=== PATIENT | male | born 1965 | race Caucasian/White ===

== ENCOUNTER 2016-06-26 20:41 | Emergency (ER) | payer SELFPAY ==
[~2016-06-26] VITALS: Ht 185.4 cm; Wt 72.6 kg
[2016-06-26 21:06] VITALS: BP 160/65
[2016-06-26] MEDS ORDERED: CEPHALEXIN MONOHYDRATE 500 MG CAPSULE PO ONE ×2 (21:28→21:30)
[2016-06-26] MEDS ORDERED: SULFAMETH/TRIMETH 800/160 MG 1 UDTAB TABLET PO ONE ×2 (21:28→21:30)
== END 2016-06-26 21:33 | disposition home or self-care (01) ==
LOC: ER 20:43
DX: L03.113 Cellulitis of right upper limb (principal); A49.02 Methicillin resistant Staphylococcus aureus infection, unspecified site; Z59.0 Homelessness
CPT/HCPCS: A4606; Z7610

== ENCOUNTER 2016-09-04 09:25 | Emergency (ER) | payer OTHER ==
[~2016-09-04] VITALS: Ht 177.8 cm; Wt 70.3 kg
[2016-09-04 09:52] LABS: EOSINOPHILS % (AUTO) 0.8 % (0.0-6.0); HEMATOCRIT 42 % (39-51); HEMOGLOBIN 14.3 g/dL (13.5-17.5); LYMPHOCYTES # (AUTO) 1.6 /CMM (0.8-4.8); LYMPHOCYTES % (AUTO) 44.2 % (20.0-44.0); MEAN CORPUSCULAR HEMOGLOBIN 32 PG (26.0-33.0); MEAN CORPUSCULAR HGB CONC 34 g/dl (31.0-36.0); MEAN CORPUSCULAR VOLUME 95 fL (80-96); MONOCYTES # (AUTO) 0.4 /CMM (0.1-1.30); MONOCYTES % (AUTO) 10.3 % (2.0-12.0); NEUTROPHILS # (AUTO) 1.5 /CMM (1.8-8.9); NEUTROPHILS % (AUTO) 43.7 % (43.0-81.0); PLATELET COUNT (AUTO) 151 /CMM (150-450); RDW COEFFICIENT OF VARIATION 14.3 (11.5-15.0); RED BLOOD CELL COUNT(AUTO) 4.43 MIL/uL (4.5-6.0); WHITE BLOOD COUNT (AUTO) 3.5 K/uL (4.3-11.0)
--- NOTE | 2016-09-04 09:52 | NUR ---
PT BBRA FROM STREETS: MULTIPLE COMPLAINTS: HEADACHE, FLU LIKE SYMPTOMS, BACK PAIN. PLACED ON MONITOR. AWAITING MD ORDER
--- NOTE | 2016-09-04 10:00 | NUR ---
DR SCALES AT BEDSIDE FOR EVAL
[2016-09-04 10:08] LABS: INR 0.97 (0.87-1.13); PROTHROMBIN TIME 10.4 SECS (9.5-12.7)
[2016-09-04 10:09] LABS: CALCIUM, SERUM 8.6 mg/dL (8.5-10.1); CARBON DIOXIDE 30 mmol/L (21-32); CHLORIDE 100 mmol/L (98-107); CREATININE 0.6 mg/dL (0.6-1.3); GFR 141 mL/min (>60); GLUCOSE 115 mg/dL (74-106); POTASSIUM 3.6 mmol/L (3.5-5.1); SODIUM SERUM 139 mmol/L (136-145); UREA NITROGEN, BLOOD 5 mg/dL (7-18)
--- NOTE | 2016-09-04 10:10 | NUR ---
XRAY AT BEDSIDE
[2016-09-04 10:17] LABS: ALANINE AMINOTRANSFERASE 73 U/L (12-78); ALKALINE PHOSPHATASE 58 U/L (46-116); ASPARTATE AMINOTRANSFERASE 87 U/L (15-37); BILIRUBIN,DIRECT 0.1 mg/dL (0.0-0.2); BILIRUBIN,TOTAL 0.4 mg/dL (0.2-1.0); TOTAL PROTEIN, SERUM 8.2 g/dL (6.4-8.2); TROPONIN I < 0.017 ng/mL (0.00-0.056)
[2016-09-04 10:30] VITALS: BP 125/66
--- NOTE | 2016-09-04 10:41 | NUR ---
Patient discharged to home in stable condition. Written and verbal after care instructions given. Patient verbalizes understanding of instruction.
== END 2016-09-04 10:40 | disposition home or self-care (01) ==
LOC: ER 09:29
DX: R07.89 Other chest pain (principal); Z59.0 Homelessness; F10.20 Alcohol dependence, uncomplicated
CPT/HCPCS: 36415; 71010; 80048; 80076; 83690; 84484; 85025; 85730; 93005; 99285; A4606; Z7610

== ENCOUNTER 2018-10-27 11:29 | Emergency (ER) | payer MEDICAID ==
[~2018-10-27] VITALS: Ht 182.9 cm; Wt 72.6 kg
--- NOTE | 2018-10-27 11:48 | NUR ---
STOMACH PAIN SINCE YESTERDAY. STATES HE DRINKS DAILY, BUT HASN'T SINCE WEDNESDAY. "FEELING SHAKY AND STOMACH PAIN COMES AND GOES". DENIES N/V AT THIS TIME. STATES HAS NOT EATEN SINCE WEDNESDAY NIGHT. PAIN IS MOSTLY LUQ/LLQ, BUT RADIATES TO RUQ. PT IN GOWN AND MADE COMFORTABLE. WALDO SCHUSTER AT BEDSIDE FOR EVAL. AWAITING ORDERS.
[2018-10-27] MEDS ORDERED: KETOROLAC TROMETHAMINE 15 MG/ML VIAL ONE (11:57)
[2018-10-27] MEDS ORDERED: ONDANSETRON HCL/PF 4 MG/2 ML VIAL ONE (11:57)
[2018-10-27] MEDS ORDERED: ONDANSETRON HCL/PF 4 MG/2 ML VIAL IVP ONE (12:00)
[2018-10-27] MEDS ORDERED: IV NS 0.9% 1,000 ML BAG IV ONE (12:00)
[2018-10-27] MEDS ORDERED: KETOROLAC TROMETHAMINE INJ 30 MG/ML VIAL IV ONE (12:00)
[2018-10-27 12:16] LABS: BASOPHILS % (AUTO) 0.5 % (0.0-2.0); EOSINOPHILS % (AUTO) 0.1 % (0.0-6.0); HEMATOCRIT 46 % (39-51); HEMOGLOBIN 15.5 g/dL (13.5-17.5); LYMPHOCYTES % (AUTO) 13.2 % (20.0-44.0); MEAN CORPUSCULAR HGB CONC 34 g/dl (31.0-36.0); MEAN CORPUSCULAR VOLUME 100 fL (80-96); MONOCYTES # (AUTO) 0.7 /CMM (0.1-1.30); MONOCYTES % (AUTO) 9.2 % (2.0-12.0); NEUTROPHILS # (AUTO) 5.7 /CMM (1.8-8.9); PLATELET COUNT (AUTO) 139 /CMM (150-450); RED BLOOD CELL COUNT(AUTO) 4.54 MIL/uL (4.5-6.0); WHITE BLOOD COUNT (AUTO) 7.4 K/uL (4.3-11.0)
[2018-10-27 12:18] LABS: APPEARANCE,URINE Clear (CLEAR); BILIRUBIN,URINE MODERATE (NEGATIVE); BLOOD, URINE Moderate Ery/uL (NEGATIVE); COLOR,URINE Amber (YELLOW); KETONES,URINE 15 (NEGATIVE); LEUKOCYTE ESTERASE ,URINE Negative (NEGATIVE); NITRITE, URINE Positive (NEGATIVE); PROTEIN,URINE 100 mg/dl (NEGATIVE); UGLUCOSE Negative (NEGATIVE)
[2018-10-27 12:24] LABS: CALCIUM, SERUM 9.7 mg/dL (8.5-10.1); CREATININE 0.8 mg/dL (0.6-1.3); POTASSIUM 3.7 mmol/L (3.5-5.1)
[2018-10-27 12:25] LABS: BACTERIA,URINE Few /HPF (None Seen); SQUAMOUS EPITHELIAL CELL,UR Rare /HPF (None Seen)
[2018-10-27 12:36] LABS: ALBUMIN 4.3 g/dL (3.4-5.0); BILIRUBIN,DIRECT 0.4 mg/dL (0.0-0.2); BILIRUBIN,TOTAL 1.4 mg/dL (0.2-1.0); TOTAL PROTEIN, SERUM 9.3 g/dL (6.4-8.2)
--- NOTE | 2018-10-27 13:14 | NUR ---
ARRANGER ASSEMBLER AT BEDSIDE
[2018-10-27] MEDS ORDERED: CEPHALEXIN MONOHYDRATE 500 MG CAPSULE PO ONE ×2 (13:42→14:00)
--- NOTE | 2018-10-27 13:53 | NUR ---
IV removed. Catheter intact and site benign. Pressure and 4x4 applied to site. No bleeding noted.Patient discharged to home in stable condition. Written and verbal after care instructions given. Patient verbalizes understanding of instruction.
[2018-10-27 13:54] VITALS: BP 147/93
== END 2018-10-27 13:55 | disposition home or self-care (01) ==
LOC: ER 11:29
DX: K29.20 Alcoholic gastritis without bleeding (principal); F10.20 Alcohol dependence, uncomplicated; N39.0 Urinary tract infection, site not specified; R11.10 Vomiting, unspecified; F31.9 Bipolar disorder, unspecified; R00.0 Tachycardia, unspecified; Y90.9 Presence of alcohol in blood, level not specified; Z60.2 Problems related to living alone
CPT/HCPCS: 36415; 76705; 80048; 80076; 81001; 83690; 85025; 96361; 96374; 96375; 99284; J1885; J2405; J7030; 81000-TC

== ENCOUNTER 2020-01-05 05:33 | Emergency (ER) | payer SELFPAY ==
[~2020-01-05] VITALS: Ht 182.9 cm; Wt 72.6 kg
--- NOTE | 2020-01-05 05:43 | NUR ---
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 PT [id number], RESPIRATIONS EVEN AND UNLABORED ON RA W/ NAD NOTED. PT CONNECTED TO THE MONITOR AND POX.
--- NOTE | 2020-01-05 05:51 | NUR ---
XRAY AT BEDSIDE
[2020-01-05] MEDS ORDERED: ACETAMINOPHEN ES 500 MG TABLET ONE (06:27)
[2020-01-05] MEDS ORDERED: IBUPROFEN 600 MG TABLET ONE (06:27)
[2020-01-05] MEDS: ACETAMINOPHEN ES 500 MG TABLET PO ONE (06:31)
[2020-01-05] MEDS: IBUPROFEN 600 MG TABLET PO ONE (06:31)
--- NOTE | 2020-01-05 06:55 | NUR ---
ATTEMPTED TO DISCHARGE PT, PT STATES HE IS UNABLE TO AMBULATE. AWARE.
--- NOTE | 2020-01-05 07:14 | NUR ---
PT TAKEN TO RADIOLOGY FOR CT
--- NOTE | 2020-01-05 08:50 | NUR ---
panda woodruff called for placement
--- NOTE | 2020-01-05 10:55 | NUR ---
Per ER Gener request, this provided homeless resources. Year-round shelters : [facility] [address] [place] [address] ; [facility] [address] [place] [address]; [facility] [address] [facility] [address] Hygiene: [facility] [address] [place] ; [facility] [address] [facility] ; [facility] [address] [facility] [facility] [place] [place] . Mental Health resources provided: [facility] [address] [place], [place] [phone] ; [facility] [place] [address], [place], [place] [phone] ; [facility] [address] [place], [place] [phone] ; [facility] [address] [place], [place] [phone] Food Resources: [place] [facility] at [facility]- [address] [facility]; Meet Each Need wit [facility] ([facility]) [address] [facility]; [facility] [address] [facility]; [facility] [address] [facility]. Substance Abuse resources provided included: [facility] Substance Abuse Self-Helpline (SASH) ; [facility] [address] [facility]. [place]. [place] [phone] ; [facility] [address] [facility]. [facility] [address] ; [facility] [address] [facility] [phone] ; [facility] [address] [facility] [phone] ; [facility] [address] [facility] [phone] ; [facility] [address] [facility] [address] [facility] [phone] ; [facility] Substance Abuse Helpline(SAS)[facility] ; [facility] ; [facility] [place]; [facility] [place]; [facility] [place]; [facility] Rudy Luevano; [place] [facility] [place]; [place]; [facility] [place]; [facility], [facility]. [place]; Alcoholics Anonymous -[facility]; Jq-Qysx-Luvdwba ; Marijuana Anonymous -[facility]; Narcotics Anonymous www.na.org.
--- NOTE | 2020-01-05 11:21 | NUR ---
PATIENT WAS SEEN BY [facility]ACH AND WAS GIVEN HOMELESS ASSISTED RESOURCES. PATIENT PROVIDED FOOD AND WALKER. PATIENT ABLE TO AMBULATE WITH WALKER. NO DISTRESS NOTED. Patient given written and verbal discharge instructions. Patient verbalizes understanding of instructions. Patient is ambulatory with steady gait. Refuses offer of detention placement. Patient given list of available shelters in surrounding area.
[2020-01-05 11:23] VITALS: BP 138/82
== END 2020-01-05 11:23 | disposition home or self-care (01) ==
LOC: ER 05:33
DX: S70.02XA Contusion of left hip, initial encounter (principal); R10.2 Pelvic and perineal pain; F32.9 Major depressive disorder, single episode, unspecified; F10.10 Alcohol abuse, uncomplicated; Z60.2 Problems related to living alone; W01.0XXA Fall on same level from slipping, tripping and stumbling without subsequent striking against object, initial encounter; Y93.89 Activity, other specified; Y92.89 Other specified places as the place of occurrence of the external cause; Y99.8 Other external cause status; Y90.9 Presence of alcohol in blood, level not specified
CPT/HCPCS: 72192-TC; 73502

== ENCOUNTER 2020-03-05 09:36 | Emergency (ER) | payer SELFPAY ==
[~2020-03-05] VITALS: Ht 182.9 cm; Wt 72.6 kg
--- NOTE | 2020-03-05 09:48 | NUR ---
PT BIB SELF C/O BACK PAIN 12/03 STATES THAT HE FEEL 5 DAYS AGO AND HURT HIS BACK. VS CHECKED. AWAITING MD FERRO.
[2020-03-05] MEDS ORDERED: ACETAMINOPHEN ES 500 MG TABLET PO ONE (11:00)
[2020-03-05] MEDS ORDERED: IBUPROFEN 600 MG TABLET PO ONE (11:00)
[2020-03-05] MEDS ORDERED: IBUPROFEN 600 MG TABLET ONE (11:13)
[2020-03-05] MEDS ORDERED: ACETAMINOPHEN ES 500 MG TABLET ONE (11:13)
[2020-03-05 11:33] VITALS: BP 132/87
--- NOTE | 2020-03-05 11:33 | NUR ---
Patient discharged to home in stable condition. Written and verbal after care instructions given. Patient verbalizes understanding of instruction.
== END 2020-03-05 11:33 | disposition home or self-care (01) ==
LOC: ER 09:43
DX: S30.0XXA Contusion of lower back and pelvis, initial encounter (principal); Z60.2 Problems related to living alone; W18.39XA Other fall on same level, initial encounter; Y93.89 Activity, other specified; Y92.89 Other specified places as the place of occurrence of the external cause; Y99.8 Other external cause status
CPT/HCPCS: 72100-TC

== ENCOUNTER 2020-03-11 12:38 | Emergency (ER) | payer MEDICAID ==
[~2020-03-11] VITALS: Ht 182.9 cm; Wt 72.6 kg
--- NOTE | 2020-03-11 13:00 | NUR ---
Patient kal from street c/o admits on heroin use. On room air, breathing evenly and unlabored. connected to the monitor and pulse ox. Kept comfortable, will continue to monitor accordingly.
[2020-03-11 14:11] VITALS: BP 149/71
--- NOTE | 2020-03-11 14:12 | NUR ---
Patient discharged to home in stable condition. Written and verbal after care instructions given. Patient verbalizes understanding of instruction.IV removed. Catheter intact and site benign. Pressure and 4x4 applied to site. No bleeding noted.Patient given written and verbal discharge instructions. Patient verbalizes understanding of instructions. Patient is ambulatory with steady gait. Refuses offer of care home placement. Patient given list of available shelters in surrounding area.
== END 2020-03-11 14:12 | disposition home or self-care (01) ==
LOC: ER 12:45
DX: T40.1X1A Poisoning by heroin, accidental (unintentional), initial encounter (principal); F32.9 Major depressive disorder, single episode, unspecified; F12.90 Cannabis use, unspecified, uncomplicated; Z60.2 Problems related to living alone; Y92.89 Other specified places as the place of occurrence of the external cause

== ENCOUNTER 2021-01-11 12:59 | Emergency (ER) | payer MEDICAID ==
[~2021-01-11] VITALS: Ht 182.9 cm; Wt 72.6 kg
--- NOTE | 2021-01-11 13:10 | NUR ---
BIB SELF C/O FACE PAIN S/P TRIP AND FALL 2 WKS AGO AND BILATERAL FOOT PAIN "I'VE BEEN WALKING FOR 15 DAYS". THE PATIENT RATES PAIN 5/10. NO APPARENT DEFORMITY NOTED. WILL CONTINUE TO MONITOR THE PATIENT.
[2021-01-11] MEDS ORDERED: CLOT12CR TP (13:19)
--- NOTE | 2021-01-11 13:33 | NUR ---
The patient is alert and oriented X4. Noted has stable gait. Food and fluid provided. Home resources provided. Patient discharged in stable condition. Written and verbal after care instructions given. Patient verbalizes understanding of instruction.
[2021-01-11 13:34] VITALS: BP 118/68
== END 2021-01-11 13:34 | disposition home or self-care (01) ==
LOC: ER 13:06
DX: S90.822A Blister (nonthermal), left foot, initial encounter (principal); S90.821A Blister (nonthermal), right foot, initial encounter; F32.9 Major depressive disorder, single episode, unspecified; F12.90 Cannabis use, unspecified, uncomplicated; Z60.2 Problems related to living alone; Z79.899 Other long term (current) drug therapy; W01.0XXA Fall on same level from slipping, tripping and stumbling without subsequent striking against object, initial encounter; Y93.89 Activity, other specified; Y92.89 Other specified places as the place of occurrence of the external cause; Y99.8 Other external cause status

== ENCOUNTER 2021-05-05 08:31 | Inpatient (IN) | payer MEDICAID ==
[~2021-05-05] VITALS: Ht 182.9 cm; Wt 72.6 kg
[~2021-05-05 08:31] MED LIST: CLOT12CR TP
--- NOTE | 2021-05-05 09:08 | NUR ---
c/o weakness, admits to have been heavily for days
--- NOTE | 2021-05-05 09:09 | NUR ---
SEEN AND EXAMINED BY .
[2021-05-05 09:38] LABS: BASOPHILS % (AUTO) 0.5 % (0.0-2.0); EOSINOPHILS % (AUTO) 0.4 % (0.0-6.0); HEMATOCRIT 41 % (39-51); HEMOGLOBIN 13.8 g/dL (13.5-17.5); LYMPHOCYTES # (AUTO) 0.6 K/uL (0.8-4.8); LYMPHOCYTES % (AUTO) 14.5 % (20.0-44.0); MEAN CORPUSCULAR HGB CONC 34 g/dl (31.0-36.0); MEAN CORPUSCULAR VOLUME 101 fL (80-96); MONOCYTES # (AUTO) 0.9 K/uL (0.1-1.30); MONOCYTES % (AUTO) 21.5 % (2.0-12.0); NEUTROPHILS # (AUTO) 2.7 K/uL (1.8-8.9); NEUTROPHILS % (AUTO) 63.1 % (43.0-81.0); PLATELET COUNT (AUTO) 204 K/uL (150-450); RED BLOOD CELL COUNT(AUTO) 4.02 MIL/uL (4.5-6.0); WHITE BLOOD COUNT (AUTO) 4.3 K/uL (4.3-11.0)
[2021-05-05 09:57] LABS: ALANINE AMINOTRANSFERASE 144 U/L (12-78); ALBUMIN 3.8 g/dL (3.4-5.0); ALKALINE PHOSPHATASE 61 U/L (46-116); ASPARTATE AMINOTRANSFERASE 104 U/L (15-37); BILIRUBIN,DIRECT 0.2 mg/dL (0.0-0.2); BILIRUBIN,TOTAL 0.4 mg/dL (0.2-1.0); CARBON DIOXIDE 27 mmol/L (21-32); CHLORIDE 96 mmol/L (98-107); CREATININE 0.8 mg/dL (0.6-1.3); GLUCOSE 107 mg/dL (74-106); POTASSIUM 3.8 mmol/L (3.5-5.1); SODIUM SERUM 133 mmol/L (136-145); TOTAL PROTEIN, SERUM 8.8 g/dL (6.4-8.2); UREA NITROGEN, BLOOD 5 mg/dL (7-18)
--- NOTE | 2021-05-05 10:00 | NUR ---
PT IS BACK FROM THE CT SCAN.
[2021-05-05 10:29] LABS: ACETAMINOPHEN 0 ug/ml (10-30); ALCOHOL, BLOOD < 3 mg/dL (0-0)
--- NOTE | 2021-05-05 12:06 | NUR ---
[facility]- [phone]
--- NOTE | 2021-05-05 12:44 | NUR ---
URINE COLLECTED AND SENT TO LAB
[2021-05-05 12:57] LABS: BILIRUBIN,URINE NEGATIVE (NEGATIVE); COLOR,URINE YELLOW (YELLOW); LEUKOCYTE ESTERASE ,URINE NEGATIVE (NEGATIVE); NITRITE, URINE NEGATIVE (NEGATIVE); PH,URINE 8.5 (5.0-8.0); PROTEIN,URINE NEGATIVE (NEGATIVE); UGLUCOSE NEGATIVE (NEGATIVE)
[2021-05-05 13:30] LABS: BACTERIA,URINE None seen /HPF (None Seen); RBC,URINE 0-2 /HPF (0-2); SQUAMOUS EPITHELIAL CELL,UR Rare /HPF (None Seen); WBC,URINE 0-2 /HPF (0-3)
--- NOTE | 2021-05-05 17:50 | NUR ---
PT AWAKE; OFFERED PT FOOD. LFA #20G S/L; PATEMT AND INTACT. WILL CONTINUE TO REASSESS PT.
[2021-05-05 19:29] LABS: BAND % (MANUAL) 2 % (0.0-5.0); EOSINOPHILS % (MANUAL) 1 % (0-4); LYMPHOCYTES % (MANUAL) 12 % (16-48); MONOCYTES % (MANUAL) 21 % (0-11.0); NEUTROPHILS % (MANUAL) 64 (42-76)
[2021-05-05] MEDS ORDERED: LORAZEPAM INJ 2 MG/ML VIAL IV PRN (20:30)
[2021-05-05] MEDS ORDERED: ONDANSETRON HCL/PF 4 MG/2 ML VIAL IVP PRN (20:30)
--- NOTE | 2021-05-05 20:52 | NUR ---
SON AWARE THAT HIS FATHER IS GOING TO BE ADMITTED IN THE HOSPITAL
[2021-05-05] MEDS: IV NS 0.9% 1,000 ML IV PRN ×2 (23:13→23:15)
[2021-05-05] MEDS ORDERED: PANTOPRAZOLE 40 MG VIAL ONE (23:48)
[2021-05-05] MEDS ORDERED: THIAMINE HCL 100 MG TABLET ONE (23:49)
[2021-05-05] MEDS ORDERED: FOLIC ACID 1 MG TABLET ONE (23:49)
[2021-05-05] MEDS: THIAMINE HCL 100 MG TABLET PO SCH (23:50)
[2021-05-05] MEDS: PANTOPRAZOLE 40 MG VIAL IV SCH (23:50)
[2021-05-05] MEDS: FOLIC ACID 1 MG TABLET PO SCH (23:50)
--- NOTE | 2021-05-06 01:31 | NUR ---
PT IS COVID POS REPORTED BY SARAY.
--- NOTE | 2021-05-06 08:41 | NUR ---
REPORT GIVEN TO NURSE HEARN FOR STEVIE
--- NOTE | 2021-05-06 08:45 | NUR ---
THE PATIENT IS TRANSFERED TO ASSIGNED ROOM IN STABLE CONDITION AND PER POLICY
[2021-05-06] MEDS ORDERED: LEVE500T9 PO (09:11)
[2021-05-06] MEDS ORDERED: THIA100T88 PO (09:11)
[2021-05-06] MEDS ORDERED: FOLIC ACID PO (09:11)
[2021-05-06] MEDS ORDERED: MULT-188 PO (09:11)
[2021-05-06 10:14] LABS: BASOPHILS % (AUTO) 0.8 % (0.0-2.0); EOSINOPHILS % (AUTO) 0.2 % (0.0-6.0); HEMATOCRIT 43 % (39-51); LYMPHOCYTES # (AUTO) 1.1 K/uL (0.8-4.8); LYMPHOCYTES % (AUTO) 30.4 % (20.0-44.0); MEAN CORPUSCULAR HGB CONC 35 g/dl (31.0-36.0); MEAN CORPUSCULAR VOLUME 99 fL (80-96); MONOCYTES % (AUTO) 27.3 % (2.0-12.0); NEUTROPHILS # (AUTO) 1.5 K/uL (1.8-8.9); NEUTROPHILS % (AUTO) 41.3 % (43.0-81.0); PLATELET COUNT (AUTO) 193 K/uL (150-450); RED BLOOD CELL COUNT(AUTO) 4.35 MIL/uL (4.5-6.0); WHITE BLOOD COUNT (AUTO) 3.7 K/uL (4.3-11.0)
[2021-05-06] MEDS: THIAMINE HCL 100 MG TABLET PO SCH (10:49)
[2021-05-06] MEDS: FOLIC ACID 1 MG TABLET PO SCH (10:49)
[2021-05-06] MEDS: PANTOPRAZOLE 40 MG VIAL IV SCH (10:49)
[2021-05-06 10:58] LABS: CALCIUM, SERUM 8.9 mg/dL (8.5-10.1); CREATININE 0.7 mg/dL (0.6-1.3); PHOSPHORUS 4.5 mg/dL (2.5-4.9); POTASSIUM 4.6 mmol/L (3.5-5.1)
--- NOTE | 2021-05-06 11:59 | NUR ---
ADMIT NOTES RECEIVED PT FROM ER. DX OF COVID POSITIVE/WEAKNESS. PT IS ON RA SATING AT 97%. NO SOB AND NO DISTRESS NOTED AT THIS TIME. RESPIRATION UNLABORED. DENIES CHEST PAIN, PT HAS IV ACCESS AT RFA #20G. SKIN IS INTACT. ISOLATION PRECAUTION IMPLEMENTED. ALL SAFETY MEASURES IN PLACE, BED IN LOWEST LOCKED POSITION, SR UP X3, CALL LIGHT WITHIN REACH. WILL CONTINUE TO MONITOR.
[2021-05-06 12:00] VITALS: BP 135/81
[2021-05-06] MEDS: ACETAMINOPHEN 325 MG TABLET PO PRN ×2 (15:24→22:01)
--- NOTE | 2021-05-06 18:17 | NUR ---
CLOSING NOTES PT IS RESTING COMFORTABLY IN BED, A/O X4, PT ON RA SATING AT 96%. SKIN IS INTACT, IV ACCESS IN RFA#20G PATENT AND FLUSHES WELL. NO SIGNS OR C/O SOB. NO DISTRESS NOTED AT THIS TIME. PT TOLERATED ALL INTERVENTIONS AND MEDS. ALL SAFETY MEASURES IN PLACE, BED IN LOWEST LOCKED POSITION, SIDE RAILS UP X2, CALL LIGHT WITHIN REACH. WILL ENDORSE TO HOSPITALIST PHYSICIAN NURSE FOR STEVIE.
[2021-05-06 19:14] LABS: BAND % (MANUAL) 3 % (0.0-5.0); LYMPHOCYTES % (MANUAL) 33 % (16-48); NEUTROPHILS % (MANUAL) 47 (42-76)
[2021-05-06 19:15] LABS: MONOCYTES % (MANUAL) 17 % (0-11.0)
--- NOTE | 2021-05-06 19:40 | NUR ---
RN NOTE RECEIVED PATINET IN BED RESTING ALERT ORIENTED X4 VERBALLY RESPONSIVE ON ROOM AIR O2:95% IV SITE IS ON RIGHT FOREARM,INTACT PATENT,SAFETY MEASURE IMPLEMENT BED IN LOW POSITION AND LOCKED,CALL LIGHT WITHIN REACH,BED ALARM IS ON CONTINUE TO MONITOR.
[2021-05-06 20:00] VITALS: BP 105/64
[2021-05-07] MEDS: IV NS 0.9% 1,000 ML IV PRN (02:28)
[2021-05-07 04:00] VITALS: BP 120/65
--- NOTE | 2021-05-07 06:59 | NUR ---
RN NOTE PATIENT REMAINS ALERT ORIENTED X4 VERBALLY RESPONSIVE ON ROOM AIR NO SOB NOT ACUTE DISTRESS NOTED,ENDORSE NEXT COMING SHIFT FOR CONTINUATION OF CARE
[2021-05-07] MEDS ORDERED: PANTOPRAZOLE 40 MG TABLET.DR PO SCH (07:30)
[2021-05-07 07:33] LABS: CALCIUM, SERUM 6.8 mg/dL (8.5-10.1); CREATININE 0.8 mg/dL (0.6-1.3); PHOSPHORUS 3.3 mg/dL (2.5-4.9); POTASSIUM 2.9 mmol/L (3.5-5.1)
[2021-05-07 07:38] LABS: EOSINOPHILS % (AUTO) 0.5 % (0.0-6.0); HEMATOCRIT 34 % (39-51); HEMOGLOBIN 11.7 g/dL (13.5-17.5); LYMPHOCYTES # (AUTO) 1.4 K/uL (0.8-4.8); LYMPHOCYTES % (AUTO) 35.5 % (20.0-44.0); MEAN CORPUSCULAR HGB CONC 35 g/dl (31.0-36.0); MEAN CORPUSCULAR VOLUME 99 fL (80-96); MONOCYTES # (AUTO) 0.9 K/uL (0.1-1.30); MONOCYTES % (AUTO) 21.2 % (2.0-12.0); NEUTROPHILS # (AUTO) 1.7 K/uL (1.8-8.9); NEUTROPHILS % (AUTO) 41.8 % (43.0-81.0); PLATELET COUNT (AUTO) 180 K/uL (150-450); RED BLOOD CELL COUNT(AUTO) 3.41 MIL/uL (4.5-6.0); WHITE BLOOD COUNT (AUTO) 4.1 K/uL (4.3-11.0)
[2021-05-07] MEDS ORDERED: POTASSIUM CHLORIDE 20 MEQ TAB.PRT.SR PO ONE (08:00)
[2021-05-07] MEDS: THIAMINE HCL 100 MG TABLET PO SCH (09:26)
[2021-05-07] MEDS: FOLIC ACID 1 MG TABLET PO SCH (09:26)
--- NOTE | 2021-05-07 15:00 | NUR ---
SW received consult regarding homelessness. Pt. was departed from hospital. SW was not able to meet with pt.
[2021-05-07 19:06] LABS: BAND % (MANUAL) 1 % (0.0-5.0); EOSINOPHILS % (MANUAL) 1 % (0-4); LYMPHOCYTES % (MANUAL) 32 % (16-48); MONOCYTES % (MANUAL) 21 % (0-11.0); NEUTROPHILS % (MANUAL) 45 (42-76)
== END 2021-05-07 11:52 | disposition home or self-care (01) | DRG 775 ==
LOC: ER 08:34 → TRANSITION 23:18 → MEDSG1 05-06 08:34
PROVIDERS: ADMIT Nurse Practitioner Acute Care; ATTEND Internal Medicine
DX: F10.129 Alcohol abuse with intoxication, unspecified (principal); U07.1 COVID-19; G92.9 Unspecified toxic encephalopathy; E86.0 Dehydration; E86.1 Hypovolemia; E87.1 Hypo-osmolality and hyponatremia; R74.01 Elevation of levels of liver transaminase levels; K70.10 Alcoholic hepatitis without ascites; G40.909 Epilepsy, unspecified, not intractable, without status epilepticus; Z59.00 Homelessness unspecified; R53.1 Weakness; Z74.09 Other reduced mobility; Y90.0 Blood alcohol level of less than 20 mg/100 ml; Z91.81 History of falling; F19.10 Other psychoactive substance abuse, uncomplicated; F31.9 Bipolar disorder, unspecified
CPT/HCPCS: 36415; 70450-TC; 71045-TC; 80048-TC; 80061-TC; 80076-TC; 81001; 83735-TC; 84100-TC; 85025-TC; 85378-TC; 85730-TC; 86140-TC; 87081-TC; 97116-TC; 97530-TC; C9113; G0378; G0480; J2405; J7030